=== PATIENT | female | born 1955 | race Caucasian/White ===

== ENCOUNTER 2019-09-28 08:05 | Outpatient (CLI) | payer MEDICARE ==
[~2019-09-28] VITALS: Ht 160 cm; Wt 56.8 kg
[2019-09-28 08:32] LABS: EOSINOPHILS 6.5 % (0-7); HEMATOCRIT 43.1 % (36.0-48.0); HEMOGLOBIN 14.3 g/dL (12-16); LYMPHOCYTES 44.5 % (15-50); MCH 33.5 pg (26.0-34.0); MCHC 33.2 g/dL (31.0-37.0); MCV 100.9 fL (80.0-100.0); MEAN PLATELET VOLUME 10.7 fL (7.4-10.4); MONOCYTES 7.3 % (2-11); NEUTROPHILS 40.7 % (40-80); PLATELET COUNT 190 10x3/uL (130-400); RBC 4.27 10x6/uL (4.00-5.40); RDW 13.4 % (11.5-14.5)
[2019-09-28 08:54] LABS: APTT 27.8 SECONDS (22.8-39.4); INR 0.95 (0.85-1.17); PROTIME 12.1 SECONDS (11.6-15.0)
[2019-09-28 08:57] LABS: ANION GAP 9.6 mmol/L (8-16); CALCIUM 8.9 mg/dL (8.5-10.1); CARBON DIOXIDE 29.3 mmol/L (21.0-32.0); POTASSIUM - SERUM 4.9 mmol/L (3.5-5.1)
[2019-09-28] MEDS ORDERED: METFORMIN HCL500 M1 PO (10:10)
[2019-09-28] MEDS ORDERED: HYDROCODON-ACE1 EA10 PO (10:11)
[2019-09-28] MEDS ORDERED: FAMOTIDINE10 MG PO (10:11)
[2019-09-28] MEDS ORDERED: VALIUM5 MG PO (10:12)
[2019-09-28] MEDS ORDERED: CYMBALTA60 MG PO (10:12)
[2019-09-28] MEDS ORDERED: CYMBALTA30 MG (10:13)
[2019-09-28] MEDS ORDERED: ZOCOR10 MG PO (10:14)
[2019-09-28] MEDS ORDERED: LOMOTIL 2.5-0.1 EAC1 PO (10:14)
[2019-09-28] MEDS ORDERED: LISINOPRIL20 MG PO (10:15)
[2019-09-28] MEDS ORDERED: BAYER CHEWABLE81 MG PO (10:15)
[2019-09-28] MEDS ORDERED: SILVER CENTRUM (10:16)
[2019-09-28] MEDS ORDERED: MULTI-DAY VITAM1 TAB (10:16)
[2019-09-28 10:42] VITALS: BP 171/89; Ht 160 cm; Wt 56.8 kg
--- NOTE | 2019-09-28 10:49 | NUR ---
1045 PT TOOK METFORMIN AT 0430 THIS AM. LAB BS NORMAL ON ARRIVAL. RECHECK ON BS DONE. BS RESULT IS 70. DONTRELL BAILEY RN NOTIFIED. NO ORDERS RECEIVED. STATES SHE WILL RECHECK BS IN CT.
--- NOTE | 2019-09-28 12:27 | NUR ---
1146-PROCEDURE CANCELLED. REMOVED IV WITH CATH INTACT,DISPOSED INTO SHARPS. COVERED SITE WITH BANDAID. PT AMBULATED OUT.
== END 2019-09-28 11:46 | disposition home or self-care (01) ==
LOC: D.SP 08:05 → D.CT 11:00 → D.SP 11:46
PROVIDERS: General Practice; ATTEND Emergency Medicine
DX: R91.8 Other nonspecific abnormal finding of lung field (principal)

== ENCOUNTER → 2019-10-02 07:51 | Outpatient (CLI) | payer MEDICARE ==
[2019-09-28 10:42] VITALS: BMI 22.1
[~2019-10-02 07:51] MED LIST: BAYER CHEWABLE81 MG PO; CYMBALTA30 MG; CYMBALTA60 MG PO; FAMOTIDINE10 MG PO; HYDROCODON-ACE1 EA10 PO; LISINOPRIL20 MG PO; LOMOTIL 2.5-0.1 EAC1 PO; METFORMIN HCL500 M1 PO; MULTI-DAY VITAM1 TAB; SILVER CENTRUM; VALIUM5 MG PO; ZOCOR10 MG PO
== END | disposition home or self-care (01) ==
LOC: D.RAD 07:51
PROVIDERS: ATTEND Internal Medicine Gastroenterology
DX: D69.2 Other nonthrombocytopenic purpura (principal)

== ENCOUNTER → 2020-01-17 09:47 | Outpatient (CLI) | payer MEDICARE ==
[2019-09-28 10:42] VITALS: BMI 22.1
[2020-01-18 09:10] LABS: ANA REFLEX - DIRECT Negative (Negative)
[2020-01-19 06:09] LABS: ANGIOTENSIN CONVERTING ENZYME <5 U/L (14-82)
== END | disposition home or self-care (01) ==
LOC: D.LAB 09:47 → D.RT 10:30
PROVIDERS: ATTEND Internal Medicine Pulmonary Disease
DX: J44.9 Chronic obstructive pulmonary disease, unspecified (principal); R91.8 Other nonspecific abnormal finding of lung field

== ENCOUNTER → 2020-08-04 13:15 | Outpatient (CLI) | payer MEDICARE ==
[2019-09-28 10:42] VITALS: BMI 22.1
== END | disposition home or self-care (01) ==
LOC: D.CT 13:15
PROVIDERS: ATTEND Internal Medicine Pulmonary Disease
DX: R91.8 Other nonspecific abnormal finding of lung field (principal)

== ENCOUNTER → 2021-02-25 10:08 | Outpatient (CLI) | payer OTHER ==
[2019-09-28 10:42] VITALS: BMI 22.1
== END | disposition home or self-care (01) ==
LOC: D.LAB 10:08
PROVIDERS: ATTEND Internal Medicine Pulmonary Disease
DX: Z11.52 Encounter for screening for COVID-19 (principal)

== ENCOUNTER → 2021-03-02 10:27 | Outpatient (CLI) | payer OTHER ==
[2019-09-28 10:42] VITALS: BMI 22.1
== END | disposition home or self-care (01) ==
LOC: D.RT 10:27
PROVIDERS: ATTEND Internal Medicine Pulmonary Disease
DX: J44.9 Chronic obstructive pulmonary disease, unspecified (principal)